=== PATIENT | male | born 1960 | race African-American/Black ===

== ENCOUNTER 2017-04-04 09:29 | Inpatient (IN) | payer OTHER ==
[2017-04-04 10:07] VITALS: BMI 25.5
--- NOTE | 2017-04-04 12:04 | HP ---
CIWA Score - CIWA Score Nausea/Vomitin Muscle Tremors: 2 Anxiety: 2 Agitation: 2 Paroxysmal Sweats: 3 Orientation: 0-Oriented Tacttile Disturbances: 1-Very Mild Itch/Numbness Auditory Disturbances: 0-None Visual Disturbances: 0-None Headache: 0-None Present CIWA-Ar Total Score: 12 Admission ROS BHS - HPI Chief Complaint: I need to stop drinking alcohol and cocaine -it's getting out of hand and I need help. Allergies/Adverse Reactions: Allergies Allergy/AdvReac Type Severity Reaction Status Date / Time No Known Allergies Allergy Verified 04/04/17 09:56 History of Present Illness: 57 y/o m pt with over 35 yr h/o alcohol dep. seeking detox. Exam Limitations: No Limitations - Ebola screening Have you traveled outside of the country in the last 21 days: No Have you had contact with anyone from an Ebola affected area: No Have you been sick,other than usual withdrawal symptoms: No Do you have a fever: No - Review of Systems Constitutional: Malaise, Unintentional Wgt. Loss (approx. 8 lbs x 2 months) EENT: reports: Blurred Vision Respiratory: reports: No Symptoms reported Cardiac: reports: No Symptoms Reported GI: reports: No Symptoms Reported : reports: No Symptoms Reported Musculoskeletal: reports: No Symptoms Reported Integumentary: reports: No Symptoms Reported Neuro: reports: Tremors Endocrine: reports: No Symptoms Reported Hematology: reports: No Symptoms Reported Psychiatric: reports: Anxious, Depressed Other Systems: Reviewed and Negative Patient History - Patient Medical History Hx Anemia: No Hx Asthma: No Hx Chronic Obstructive Pulmonary Disease (COPD): No Hx Cancer: No Hx Cardiac Disorders: No Hx Congestive Heart Failure: No Hx Hypertension: No Hx Hypercholesterolemia: No Hx Pacemaker: No HX Cerebrovascular Accident: No Hx Seizures: No Hx Dementia: No Hx Diabetes: No Hx Gastrointestinal Disorders: No Hx Liver Disease: No Hx Genitourinary Disorders: No Hx Sexually Transmitted Disorders: No Hx Renal Disease (ESRD): No Hx Thyroid Disease: No Hx Human Immunodeficiency Virus (HIV): No Hx Hepatitis C: No Hx Depression: Yes Hx Suicide Attempt: No Hx Bipolar Disorder: No Hx Schizophrenia: No - Patient Surgical History Past Surgical History: Yes Hx Orthopedic Surgery: Yes (right middle finger flexor tendon repair) - PPD History Previous Implant?: Yes Documented Results: Negative w/o proof - Reproductive History Patient is a Female of Child Bearing Age (11 -55 yrs old): No - Smoking Cessation Smoking history: Current every day smoker Have you smoked in the past 12 months: Yes Aproximately how many cigarettes per day: 3 Cigars Per Day: 0 Hx Chewing Tobacco Use: No Initiated information on smoking cessation: Yes 'Breaking Loose' booklet given: 04/04/17 - Substance & Tx. History Hx Alcohol Use: Yes Hx Substance Use: Yes Substance Use Type: Alcohol Hx Substance Use Treatment: Yes - Substances Abused Cocaine Route: Inhalation Frequency: Daily Amount used: $100 Age of first use: 20 Date of Last Use: 04/02/17 Alcohol-cognac/beer Route: Oral Frequency: Daily Amount used: 1 pt./2-6 pks. Age of first use: 20 Date of Last Use: 04/04/17 Family Disease History - Family Disease History Family Disease History: Heart Disease: Mother (living, paralyzed, HTN), Other: Father (living, paralyzed, no contact), Mother, Brother (one) Admission Physical Exam BHS - Vital Signs Vital Signs: Vital Signs - 24 hr 04/04/17 09:57 Temperature 96.5 F L Pulse Rate 101 H Respiratory 18 Rate Blood Pressure 120/77 57 y/o m pt aox3 in nad ambulating and cooperative with exam. - Physical General Appearance: Yes: No Apparent Distress, Appropriately Dressed, Anxious HEENTM: Yes: Hearing grossly Normal, Normocephalic, Normal Voice, NORTH Respiratory: Yes: Chest Non-Tender, Lungs Clear, Normal Breath Sounds Neck: Yes: No masses,lesions,Nodules, Supple, Trachea in good position Breast: Yes: Within Normal Limits Cardiology: Yes: Regular Rhythm, Regular Rate, S1, S2 Abdominal: Yes: Non Tender, Flat, Soft, Increased Bowel Sounds Genitourinary: Yes: Within Normal Limits Back: Yes: Decreased Range of Motion Musculoskeletal: Yes: Joint Stiffness Extremities: Yes: Within Normal Limits Neurological: Yes: form setter metal road forms II-XII NML intact, Motor Strength 5/5 Integumentary: Yes: Within Normal Limits Lymphatic: Yes: Within Normal Limits - Diagnostic (1) Chronic alcohol dependence, continuous Current Visit: Yes Status: Chronic (2) Cocaine abuse Current Visit: Yes Status: Chronic (3) Nicotine dependence Current Visit: Yes Status: Chronic Qualifiers: Nicotine product type: cigarettes Substance use status: uncomplicated Qualified Code(s): F17.210 - Nicotine dependence, cigarettes, uncomplicated Cleared for Admission [facility] - Detox or Rehab [facility] Level of Care: Medically Managed Detox Regimen/Protocol: Librium [facility] Breath Alcohol Content Breath Alcohol Content: 0.042 Urine Drug Screen - Results Drug Screen Negative: No Urine Drug Screen Results: VINNIE-Cocaine
[2017-04-04] MEDS ORDERED: P-EPHED 60MG/TRIPROLIDI 2.5MG TABLET PO PRN (12:18)
[2017-04-04] MEDS ORDERED: MAG HYDROX/AL HYDROX/SIMETH 30 ML UNIT-DOSE CUP PO PRN (12:18)
[2017-04-04] MEDS ORDERED: MAGNESIUM CITRATE 300 ML BOTTLE PO PRN (12:18)
[2017-04-04] MEDS ORDERED: chlordiazePOXIDE HCL 25 MG CAPSULE PO PRN (12:18)
[2017-04-04] MEDS ORDERED: guaiFENesin/D-METHORPHAN HB 10 ML UNIT-DOSE CUPS PO PRN (12:18)
[2017-04-04] MEDS ORDERED: LOPERAMIDE HCL 2 MG CAPSULE PO PRN (12:18)
[2017-04-04] MEDS ORDERED: NICOTINE POLACRILEX 2 MG GUM BC PRN (12:18)
[2017-04-04] MEDS ORDERED: IBUPROFEN 400 MG TABLET (FP) PO PRN (12:18)
[2017-04-04] MEDS ORDERED: MAGNESIUM HYDROX 2400MG/30ML ORAL SUSPENSION 30 ML CUP PO PRN (12:18)
[2017-04-04] MEDS ORDERED: MENTHOL/PHENOL 1 EACH UD MM PRN (12:18)
[2017-04-04] MEDS ORDERED: ACETAMINOPHEN 325 MG TABLET (FP) PO PRN (12:18)
[2017-04-04] MEDS: chlordiazePOXIDE HCL 25 MG CAPSULE PO SCH ×2 (17:28→22:35)
[2017-04-04 18:07] LABS: URINE APPEARANCE SLCLOUDY; URINE BILIRUBIN NEGATIVE (NEGATIVE); URINE BLOOD NEGATIVE (NEGATIVE); URINE COLOR YELLOW; URINE GLUCOSE (UA) NEGATIVE (NEGATIVE); URINE KETONE NEGATIVE (NEGATIVE); URINE LEUK ESTERASE NEGATIVE (NEGATIVE); URINE NITRITE NEGATIVE (NEGATIVE); URINE PROTEIN NEGATIVE (NEGATIVE); URINE UROBILINOGEN NEGATIVE mg/dL (0.2-1.0)
--- NOTE | 2017-04-04 19:16 | EKG ---
Test Reason : Blood Pressure : / mmHG Vent. Rate : 080 BPM Atrial Rate : 080 BPM P-R Int : 162 ms QRS Dur : 090 ms QT Int : 364 ms P-R-T Axes : 064 018 023 degrees QTc Int : 419 ms NORMAL SINUS RHYTHM LEFT ATRIAL ABNORMALITY bORDER LINE CRETERIA FOR LVH EARLY REPOLARIZATION NO PREVIOUS ECGS AVAILABLE REPEAT EKG IF CLINICALLY INDICATED Confirmed by CHRIS MEYERS MD ([id number]) on 04/04/2017 7:15:54 PM Referred By: Confirmed By:CHRIS MEYERS MD
[2017-04-04] MEDS: THIAMINE HCL 100 MG TABLET (FP) PO SCH (22:35)
[2017-04-04] MEDS: diphenhydrAMINE HCL 50 MG CAPSULE PO PRN (22:35)
[2017-04-05] MEDS: chlordiazePOXIDE HCL 25 MG CAPSULE PO SCH ×4 (05:39→22:36)
[2017-04-05 10:06] LABS: MCH 32.9 pg (25.7-33.7); MCHC 33.1 g/dl (32.0-35.9); MEAN CELL VOLUME 99.3 fl (80-96); MEAN PLT VOLUME 8.6 fl (7.5-11.1); PLATELET COUNT 339 K/MM3 (134-434); RDW 13.1 % (11.9-15.9); WHITE BLOOD COUNT 5.7 K/mm3 (4.0-10.0)
[2017-04-05] MEDS: PRENATAL VITAMINS W/ FOLIC ACID TABLET (FP) PO SCH (10:21)
[2017-04-05 10:26] LABS: ALBUMIN 4.1 g/dl (3.4-5.0); ALK PHOS 58 U/L (45-117); ANION GAP 9 (8-16); BILIRUBIN,TOTAL 0.4 mg/dL (0.2-1.0); CALCIUM 9.9 mg/dL (8.5-10.1); CO2 29 mmol/L (21-32); GLUCOSE,RANDOM 104 mg/dL (74-106); SGOT/AST 20 U/L (15-37); SGPT/ALT 50 U/L (12-78); TOT PROT 8.1 g/dl (6.4-8.2)
--- NOTE | 2017-04-05 10:36 | PN ---
S CIWA - CIWA Score Nausea/Vomitin-No Nausea/No Vomiting Muscle Tremors: 4-Moderate,w/Arms Extend Anxiety: 2 Agitation: 3 Paroxysmal Sweats: 3 Orientation: 0-Oriented Tacttile Disturbances: 0-None Auditory Disturbances: 0-None Visual Disturbances: 0-None Headache: 0-None Present CIWA-Ar Total Score: 12 BHS Progress Note (SOAP) Subjective: rash on the top of my feet sweats irritable agitation Objective: 04/05/17 10:34 Vital Signs Temperature 97.3 F L 04/05/17 09:56 Pulse Rate 86 04/05/17 09:56 Respiratory Rate 20 04/05/17 09:56 Blood Pressure 135/84 04/05/17 09:56 O2 Sat by Pulse Oximetry (%) Laboratory Tests 04/04/17 04/05/17 04/05/17 13:00 06:00 06:00 WBC 5.7 RBC 4.80 Hgb 15.8 Hct 47.6 MCV 99.3 H MCH 32.9 MCHC 33.1 RDW 13.1 Plt Count 339 MPV 8.6 Sodium 138 Potassium 4.2 Chloride 100 Carbon Dioxide 29 Anion Gap 9 BUN 15 Creatinine 1.0 Creat Clearance w eGFR > 60 Random Glucose 104 Calcium 9.9 Total Bilirubin 0.4 AST 20 ALT 50 Alkaline Phosphatase 58 Total Protein 8.1 Albumin 4.1 Urine Color Yellow Urine Appearance Slcloudy Urine pH 5.0 Ur Specific [place] 1.025 Urine Protein Negative Urine Glucose (UA) Negative Urine Ketones Negative Urine Blood Negative Urine Nitrite Negative Urine Bilirubin Negative Urine Urobilinogen Negative Ur Leukocyte Esterase Negative awake/alert ambulating no acute distress Assessment: 04/05/17 10:35 withdrawal sx Plan: continue detox increase fluids lidex ointment for rash
[2017-04-05] MEDS: FLUOCINONIDE 0.05% CREAM (15 GM TUBE) TP SCH ×3 (13:34→22:35)
[2017-04-05] MEDS: diphenhydrAMINE HCL 50 MG CAPSULE PO PRN (22:36)
[2017-04-05] MEDS: THIAMINE HCL 100 MG TABLET (FP) PO SCH (22:36)
[2017-04-06] MEDS: chlordiazePOXIDE HCL 25 MG CAPSULE PO SCH ×2 (05:16→10:13)
[2017-04-06] MEDS: FLUOCINONIDE 0.05% CREAM (15 GM TUBE) TP SCH ×4 (10:13→22:27)
[2017-04-06] MEDS: PRENATAL VITAMINS W/ FOLIC ACID TABLET (FP) PO SCH (10:13)
--- NOTE | 2017-04-06 11:11 | PN ---
[facility] CIWA - CIWA Score Nausea/Vomitin-No Nausea/No Vomiting Muscle Tremors: 4-Moderate,w/Arms Extend Anxiety: 2 Agitation: 3 Paroxysmal Sweats: 2 Orientation: 0-Oriented Tacttile Disturbances: 0-None Auditory Disturbances: 0-None Visual Disturbances: 0-None Headache: 0-None Present CIWA-Ar Total Score: 11 [facility] Progress Note (SOAP) Subjective: irritable agitation sweats feeling upset and depressed Objective: 04/06/17 11:09 Vital Signs Temperature 97.9 F 04/06/17 10:35 Pulse Rate 85 04/06/17 10:35 Respiratory Rate 18 04/06/17 10:35 Blood Pressure 132/86 04/06/17 10:35 O2 Sat by Pulse Oximetry (%) Laboratory Tests 04/04/17 04/05/17 04/05/17 13:00 06:00 06:00 WBC 5.7 RBC 4.80 Hgb 15.8 Hct 47.6 MCV 99.3 H MCH 32.9 MCHC 33.1 RDW 13.1 Plt Count 339 MPV 8.6 Sodium 138 Potassium 4.2 Chloride 100 Carbon Dioxide 29 Anion Gap 9 BUN 15 Creatinine 1.0 Creat Clearance w eGFR > 60 Random Glucose 104 Calcium 9.9 Total Bilirubin 0.4 AST 20 ALT 50 Alkaline Phosphatase 58 Total Protein 8.1 Albumin 4.1 Urine Color Yellow Urine Appearance Slcloudy Urine pH 5.0 Ur Specific [place] 1.025 Urine Protein Negative Urine Glucose (UA) Negative Urine Ketones Negative Urine Blood Negative Urine Nitrite Negative Urine Bilirubin Negative Urine Urobilinogen Negative Ur Leukocyte Esterase Negative RPR Titer 04/05/17 06:00 WBC RBC Hgb Hct MCV MCH MCHC RDW Plt Count MPV Sodium Potassium Chloride Carbon Dioxide Anion Gap BUN Creatinine Creat Clearance w eGFR Random Glucose Calcium Total Bilirubin AST ALT Alkaline Phosphatase Total Protein Albumin Urine Color Urine Appearance Urine pH Ur Specific [place] Urine Protein Urine Glucose (UA) Urine Ketones Urine Blood Urine Nitrite Urine Bilirubin Urine Urobilinogen Ur Leukocyte Esterase RPR Titer Nonreactive awake/alert ambulating no acute distress Assessment: 04/06/17 11:10 withdrawal sx Plan: continue detox increase fluids psych ordered for depression he expressed to the nurse earlier
--- NOTE | 2017-04-06 16:00 | CONSULT ---
[facility] Psychiatric Consult - Data Date of interview: 04/06/17 Admission source: [facility] Identifying data: Readmission to [facility] for this 57 y/o AA male seeking detox treatment on for alcohol and cocaine dependence.Patient is single, a father of three,domiciled and currently employed. Substance Abuse History: Discussed with patient in this interview.Mr Colunga confirms this report. Smoking Cessation. Smoking history: Current every day smoker. Have you smoked in the past 12 months: Yes. Aproximately how many cigarettes per day: 3. Cigars Per Day: 0. Hx Chewing Tobacco Use: No. Initiated information on smoking cessation: Yes. 'Breaking Loose' booklet given : 04/04/17. - Substance & Tx. History. Hx Alcohol Use: Yes. Hx Substance Use : Yes. Substance Use Type: Alcohol. Hx Substance Use Treatment: Yes. - Substances Abused. Cocaine. Route: Inhalation. Frequency: Daily. Amount used: $100. Age of first use: 20. Date of Last Use: 04/02/17. Alcohol- cognac/beer. Route: Oral. Frequency: Daily. Amount used: 1 pt./2-6 pks. Age of first use: 20. Date of Last Use: 04/04/17 Medical History: Patient endorses good physical health.Noted past history of orthosurgery for flexor tendon repair (right middle finger). Psychiatric History: Patient denies. Physical/Sexual Abuse/Trauma History: Patient denies. Additional Comment: Urine Drug Screen Results: VINNIE-Cocaine.Noted. Mental Status Exam - Mental Status Exam Alert and Oriented to: Time, Place, Person Cognitive Function: Good Patient Appearance: Well Groomed Mood: Hopeful, Euthymic Affect: Appropriate, Normal Range Patient Behavior: Appropriate, Cooperative Speech Pattern: Clear Voice Loudness: Normal Thought Process: Intact, Goal Oriented Thought Disorder: Not Present Hallucinations: Denies Suicidal Ideation: Denies Homicidal Ideation: Denies Insight/Judgement: Poor Sleep: Poorly, Difficulty falling asleep Appetite: Good Muscle strength/Tone: Normal Gait/Station: Normal Psychiatric Findings - Problem List ([place] 1, 2,3) (1) Chronic alcohol dependence, continuous Current Visit: Yes Status: Acute (2) Cocaine dependence Current Visit: Yes Status: Acute (3) Nicotine dependence Current Visit: Yes Status: Acute Qualifiers: Nicotine product type: cigarettes Substance use status: uncomplicated Qualified Code(s): F17.210 - Nicotine dependence, cigarettes, uncomplicated (4) Insomnia Current Visit: Yes Status: Acute - Initial Treatment Plan Initial Treatment Plan: Psychoeducation.Detoxification.Ambien 10 mg po prn for insomnia.Patient is made aware of potential for parasomnias.Observation.
[2017-04-06] MEDS ORDERED: ZOLPIDEM TARTRATE 5 MG TABLET PO PRN (16:08)
[2017-04-06] MEDS: chlordiazePOXIDE 5 MG CAPSULE PO SCH ×2 (17:19→22:27)
[2017-04-06] MEDS: THIAMINE HCL 100 MG TABLET (FP) PO SCH (22:27)
[2017-04-07] MEDS: chlordiazePOXIDE 5 MG CAPSULE PO SCH ×2 (05:44→10:31)
[2017-04-07] MEDS: PRENATAL VITAMINS W/ FOLIC ACID TABLET (FP) PO SCH (10:31)
[2017-04-07] MEDS: FLUOCINONIDE 0.05% CREAM (15 GM TUBE) TP SCH ×4 (10:31→23:00)
--- NOTE | 2017-04-07 15:10 | PN ---
S Progress Note (SOAP) Subjective: ALERT,IRRITABLE,INTERRUPTED SLEEP Objective: 04/07/17 15:08 Vital Signs Temperature 97.9 F 04/07/17 14:56 Pulse Rate 99 H 04/07/17 14:56 Respiratory Rate 20 04/07/17 14:56 Blood Pressure 116/61 04/07/17 14:56 O2 Sat by Pulse Oximetry (%) Assessment: 04/07/17 15:09 WITHDRAWAL SYMPTOM Plan: CONTINUE DETOX, DISCHARGE IN AM AT 0700AM
[2017-04-07] MEDS: chlordiazePOXIDE HCL 10 MG CAPSULE PO SCH ×2 (17:48→22:59)
[2017-04-07] MEDS: THIAMINE HCL 100 MG TABLET (FP) PO SCH (23:00)
[2017-04-08] MEDS: chlordiazePOXIDE HCL 10 MG CAPSULE PO SCH (05:11)
[2017-04-08 06:29] VITALS: BP 118/77; PULSE 85; TEMP 97.7
--- NOTE | 2017-04-08 08:29 | DS ---
[facility] Detox Discharge Summary Admission Date: 04/04/17 Discharge Date: 04/08/17 - History Present History: Alcohol Dependence, Cocaine Dependence Additional Comments: FOLLOW UP WITH AFTER CARE PROGRAM ARRANGEMENT Pertinent Past History: NICOTINE DEPENDENCE - Physical Exam Results Vital Signs: Vital Signs Temperature 97.7 F 04/08/17 06:28 Pulse Rate 85 04/08/17 06:28 Respiratory Rate 18 04/08/17 06:28 Blood Pressure 118/77 04/08/17 06:28 O2 Sat by Pulse Oximetry (%) Pertinent Admission Physical Exam Findings: WITHDRAWAL SYMPTOM - Treatment Hospital Course: Detox Protocol Followed, Detoxed Safely, Responded well, Discharged Condition Good Patient has Accepted a Rehab Referral to: DECL[facility]ED - Medication Discharge Medications: Ambulatory Orders NK [No Known Home Medication] 03/31/17 - Diagnosis (1) Chronic alcohol dependence, continuous Status: Acute (2) Cocaine dependence Status: Acute (3) Insomnia Status: Acute (4) Nicotine dependence Status: Acute Qualifiers: Nicotine product type: cigarettes Substance use status: uncomplicated Qualified Code(s): F17.210 - Nicotine dependence, cigarettes, uncomplicated - AMA Did Patient Leave Against Medical Advice: No
== END 2017-04-08 07:10 | disposition home or self-care (01) | DRG 774 ==
LOC: YASAS 09:29 → Y6N 11:49
PROVIDERS: ADMIT Internal Medicine; ATTEND Internal Medicine
PROC: HZ2ZZZZ Detoxification Services for Substance Abuse Treatment (ICD-10-PCS; principal; 2017-04-04)
DX: F10.230 Alcohol dependence with withdrawal, uncomplicated (principal); F14.20 Cocaine dependence, uncomplicated; F17.210 Nicotine dependence, cigarettes, uncomplicated; G47.00 Insomnia, unspecified
CPT/HCPCS: 36415; 80053; 81003; 85027; 86593; 93005; 93010